=== PATIENT | male | born 1990 | race Caucasian/White ===

== ENCOUNTER 2018-01-12 18:52 | Emergency (ER) | payer OTHER ==
[~2018-01-12] VITALS: Ht 175.3 cm; Wt 77.1 kg
[2018-01-12] MEDS ORDERED: ACETAMINOPHEN-1 EAC1 PO (19:39)
[2018-01-12] MEDS ORDERED: PENICILLIN VK500 M1 PO (19:39)
[2018-01-12 19:52] VITALS: BP 137/72
== END 2018-01-12 19:52 | disposition home or self-care (01) ==
LOC: M.ERS 18:52
DX: J02.0 Streptococcal pharyngitis (principal); Z85.528 Personal history of other malignant neoplasm of kidney; Z88.2 Allergy status to sulfonamides